=== PATIENT | female | born 1945 | race Caucasian/White ===

== ENCOUNTER → 2017-05-16 | Outpatient (CLI) | payer OTHER | LOC: BMCIMAGING 11:51 | PROVIDERS: ATTEND Internal Medicine | DX: Z12.31 Encounter for screening mammogram for malignant neoplasm of breast (principal); Z80.3 Family history of malignant neoplasm of breast | CPT/HCPCS: G0202 ==

== ENCOUNTER → 2018-05-16 | Outpatient (CLI) | payer OTHER | LOC: BMCIMAGING 15:18 → EDSTATUS 15:22 | PROVIDERS: ATTEND Internal Medicine Rheumatology | DX: M19.011 Primary osteoarthritis, right shoulder (principal) ==